=== PATIENT | female | born 1965 | race Caucasian/White ===

== ENCOUNTER → 2021-07-02 09:33 | Outpatient (POV) | payer OTHER, SELFPAY ==
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
[2021-07-02 10:02] VITALS: BP 177/77; PULSE 90; RESP 18; O2SAT 99; BMI 24.7
== END ==
PROVIDERS: Visit Provider Clinical Nurse Specialist Family Health
DX: M47.892 Other spondylosis, cervical region (principal); M54.12 Radiculopathy, cervical region; M54.50 Low back pain, unspecified
CPT/HCPCS: 99202; G0463

== ENCOUNTER 2021-07-17 17:00 | Outpatient (RCR) | payer OTHER, SELFPAY ==
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
== END 2021-08-29 16:15 | disposition home or self-care (01) ==
LOC: PT.CARL 17:00
PROVIDERS: Visit Provider Clinical Nurse Specialist Family Health
DX: M54.2 Cervicalgia (principal); M54.50 Low back pain, unspecified
CPT/HCPCS: 97010; 97012; 97014; 97110; 97140; 97163; G0283

== ENCOUNTER 2021-07-19 13:19 | Day surgery (SDC) | payer OTHER, SELFPAY ==
[2021-07-19 13:28] VITALS: BP 148/64; PULSE 81; RESP 18; TEMP 36.7; O2SAT 99; BMI 24.7
--- NOTE | 2021-07-19 13:39 | HMH.PMPROC ---
- Procedure Date: 07/19/21 Time: 13:39 Anesthesiologist:: Silvio Boyd MD Complications:: None Pre-procedure Diagnosis:: Degenerative disc disease of cervical spine with cervical radiculopathy symptoms Post-procedure Diagnosis:: Same Indications for Procedure:: Patient is a pleasant 56-year-old white female who we are treating for neck pain with cervical radicular symptoms. She has increasing pain in her neck radiating to both shoulders. We will plan on cervical epidural steroid injection under fluoroscopy today. Procedure Details:: Cervical epidural steroid injection under fluoroscopy Informed consent was obtained and the risks and benefits of the procedure was explained to the patient. The patient was taken to the procedure room placed prone on the procedure table. The neck was prepped using ChloraPrep. The skin and subcutaneous tissues were anesthetized using lidocaine. I placed a 18-gauge epidural needle into the C5-C6 interspace and advanced using [id number] to air and fluoroscopic guidance. After confirmation of needle placement in the epidural space with dye, I injected 3 mL's lidocaine 1.5% and Depo-Medrol 80 mg. The patient tolerated the procedure well with no complications. Plan and Disposition:: We will follow-up with her in 2 weeks. Will reevaluate symptoms at that time.
[2021-07-19 13:49] VITALS: BP 163/70; PULSE 83; RESP 18; O2SAT 100
[2021-07-19 13:50] VITALS: PULSE 89; RESP 18; O2SAT 100
[2021-07-19 14:03] VITALS: BP 140/69; PULSE 81; RESP 20; O2SAT 99
== END 2021-07-19 14:04 | disposition home or self-care (01) ==
LOC: SC.PAINP 13:21
PROVIDERS: PCP Internal Medicine; Visit Provider Anesthesiology
DX: M50.10 Cervical disc disorder with radiculopathy, unspecified cervical region (principal)
CPT/HCPCS: 62321; Q9966

== ENCOUNTER → 2021-08-12 08:54 | Outpatient (POV) | payer OTHER, SELFPAY ==
[2021-08-12 09:11] VITALS: BP 154/83; PULSE 102; RESP 18; O2SAT 97; BMI 22.3
--- NOTE | 2021-08-12 09:24 | HMH.PAINSOAP ---
[facility] Pain Management SOAP Note Subjective:: Patient is a 56-year-old white female who presents today for follow-up after cervical epidural steroid injection at C5-C6. This was the patient's #1 injection. The patient says that she got up to 80% relief. She does rate her pain a 4 out of 10 at this time. She says that she is not having pain down her left arm any longer. She does, however, still have burning sensation with sharp pain into her neck area. She says the pain does worsen while at work. In the a.m., her pain is much better. As the day progresses she says the pain does return. She is currently on meloxicam prescribed by Dr. Alvarez. She is scheduled for nerve conduction study at [facility] tomorrow. Patient will return to work in a few days and is concerned her pain will worsen. She would like to proceed with a repeat cervical epidural steroid injection at the same area. Review of Systems General: No recent weight changes, no fever, no sleep disturbances Respiratory: No cough, no shortness of air, no recurring pulmonary infections Cardiovascular/peripheral vascular: No chest pain, no palpitations, no edema, no shortness of breath Gastrointestinal: No new onset incontinence, normal bowel movements reported Genitourinary: No new onset incontinence Musculoskeletal: Neck pain with intermittent radiation into left arm Psychiatric: [Normal mood/affect] Neurological: [Denies weakness in extremities], [denies balance issues] Objective:: Physical exam General: Alert and oriented x3, no acute distress, pleasant and cooperative Lungs: Respirations even and unlabored, symmetrical chest expansion Eyes: PERRL Musculoskeletal: Flexion and extension of cervical [spine] somewhat guarded secondary to pain, Neurological: Speech clear, no gross sensory deficit Assessment:: Degenerative disc disease cervical spine with cervical radiculopathy symptoms Plan:: The patient reports to have gotten 80% relief with her #1 cervical epidural steroid injection at C5-C6 area. She would like to repeat the injection. She is continuing to have a burning sensation and sharp pain in her neck area while working. We will schedule the patient for a repeat injection and plan to see her back afterwards for further evaluation. This will be the patient's second injection. She is not on any anticoagulation therapy and is not diabetic. ORT is low risk. Patient did sign a pain management agreement today. Possible side effects of corticosteroids have been discussed with the patient. Risks and benefits of the procedure have been explained to the patient. Patient would like to proceed with the procedure. Patient has been instructed to contact the clinic with any concerns before the next appointment. Dr. Boyd has reviewed this note and agrees with this plan of care. This note was dictated using voice recognition software and make contain errors or omissions. [facility] History I have reviewed the patient's past medical history: Yes Medical History: Denies:: Cancer, Diabetes Mellitus Type 1, Diabetes Mellitus Type 2, MRSA, Seizures *Have you ever received a pneumonia vaccine?: No *Have you received a flu vaccine this season?: No Other Medical History: Denies: Blood Transfusion Reaction Laterality Cases: Right: Arthroscopy Knee, Bilateral: Tonsillectomy Other Surgeries: Yes: Amputation: No Fractures: No - *Social History Smoking Status: Never smoker Alcohol Intake: never *Occupational Status:: employed *Travel in the last 8 weeks: None Family Hx:: Non-contributory
== END ==
PROVIDERS: Visit Provider Clinical Nurse Specialist Family Health
DX: M50.10 Cervical disc disorder with radiculopathy, unspecified cervical region (principal)
CPT/HCPCS: 99212; G0463

== ENCOUNTER 2021-09-06 13:56 | Day surgery (SDC) | payer OTHER, SELFPAY ==
[2021-09-06 14:06] VITALS: BP 181/66; PULSE 86; RESP 20; TEMP 36.7; O2SAT 100; BMI 24.7
[2021-09-06 14:39] VITALS: BP 177/74; PULSE 87; RESP 18; O2SAT 99
[2021-09-06 14:41] VITALS: PULSE 89; RESP 18; O2SAT 100
--- NOTE | 2021-09-06 14:43 | HMH.PMPROC ---
- Procedure Date: 09/06/21 Time: 14:43 Anesthesiologist:: Silvio Boyd MD Complications:: None Pre-procedure Diagnosis:: Degenerative disc disease of the cervical spine with cervical radiculopathy symptoms Post-procedure Diagnosis:: Same Indications for Procedure:: This patient is a pleasant 56-year-old white female who we are treating for neck pain with cervical radicular symptoms. She did very well after last cervical epidural steroid injection. She was 80% better. Her pain is starting to return now. She presents for repeat cervical epidural steroid injection under fluoroscopy today. Procedure Details:: Cervical epidural steroid injection under fluoroscopy Informed consent was obtained and the risks and benefits of the procedure was explained to the patient. The patient was taken to the procedure room placed prone on the procedure table. The neck was prepped using ChloraPrep. The skin and subcutaneous tissues were anesthetized using lidocaine. I placed a 18-gauge epidural needle into the C5-C6 interspace and advanced using [id number] to air and fluoroscopic guidance. After confirmation of needle placement in the epidural space with dye, I injected 3 mL's lidocaine 1.5% and Depo-Medrol 80 mg. The patient tolerated the procedure well with no complications. Plan and Disposition:: We will follow-up with her in 2 weeks. Will reevaluate symptoms at that time.
[2021-09-06 14:51] VITALS: BP 152/78; PULSE 71; RESP 20; O2SAT 99
== END 2021-09-06 14:52 | disposition home or self-care (01) ==
LOC: SC.PAINP 13:56
PROVIDERS: PCP Internal Medicine; Visit Provider Anesthesiology
DX: M50.10 Cervical disc disorder with radiculopathy, unspecified cervical region (principal)
CPT/HCPCS: 62321; Q9966

== ENCOUNTER → 2021-09-10 11:42 | Outpatient (POV) | payer OTHER, SELFPAY ==
--- NOTE | 2021-09-10 19:58 | HMH.VVPMSO ---
[facility] Virtual Visit SOAP Consent for virtual visit:: With the recent concerns about the COVID-19, we are trying to minimize exposure to you by shifting to telehealth appointments whenever possible. It restricts me from seeing you in person, but the trade off is protecting you during this pandemic. Can you see and hear me okay, and do you consent to this option? If not, I would be happy to see if we can reschedule your appointment in the future, when feasible. Has patient consented to this virtual visit?: Yes Subjective:: Patient is a pleasant 56-year-old white female who contacted the clinic today regarding worsening pain. The patient did undergo a cervical epidural steroid injection on 09/06/2021. She is calling today with concerns of something may have been left in her neck . She says that the pain she is having is unlike any type of pain she is had in the past. The pain is excruciating in nature. We we will send the patient for an x-ray today. We did discuss possible corticosteroids, however she would like to defer on this at this time. She has been taken meloxicam. She is inquiring about different medication to take until she can be seen in the clinic. Review of Systems General: No recent weight changes, no fever, no sleep disturbances Respiratory: No cough, no shortness of air, no recurring pulmonary infections Cardiovascular/peripheral vascular: No chest pain, no palpitations, no edema, no shortness of breath Gastrointestinal: No new onset incontinence, normal bowel movements reported Genitourinary: No new onset incontinence Musculoskeletal: Severe neck pain after injection and cervical spine Psychiatric: [Normal mood/affect] Neurological: [Denies weakness in extremities], [denies balance issues] Objective:: Physical exam General: Alert and oriented x3, no acute distress, pleasant Assessment:: Degenerative disc disease cervical spine cervical radiculopathy symptoms Plan:: We will send the patient for x-rays to rule out any abnormal findings after her cervical epidural steroid injection. Patient will be contacted after x-ray to discuss a further plan of care. Patient was contacted this evening regarding her x-ray. The x-ray was unremarkable. We will change the patient's meloxicam to Celebrex 200 mg 1 tablet p.o. daily. We will give her 1 month dose of tramadol 50 mg 1 tablet p.o. twice daily. We will follow up with the patient in 1 week in the clinic for further evaluation. Risks and benefits of the medication have been explained in detail to the patient. The patient does understand the risk of dependence on the medication when given over a prolonged period. Patient has been advised of risks of oversedation with the prescribed medication. Narcan has been offered to the paitent in the event of oversedation. Patient has been advised that a family member should also be educated regarding administration of Narcan. The patient has been advised to consult with his/her primary care provider and pharmacist regarding drug-drug interaction of medications currently prescribed. Patient has been prescribed a controlled substance after being counseled on the medication, medication safety, and possible side effects. JONATAN report has been obtained and reviewed prior to prescription and found to be appropriate. Opioid contract was reviewed and signed by the patient, and that they have agreed to all of the terms set forth by our compliance program. Patient has been instructed to contact the clinic with any concerns before the next appointment. Dr. Boyd has reviewed this note and agrees with this plan of care. This note was dictated using voice recognition software and make contain errors or omissions. Time In:: 10:30 Time Out:: 10:45 [facility] History I have reviewed the patient's past medical history: Yes Medical History: Denies:: Cancer, Diabetes Mellitus Type 1, Diabetes Mellitus Type 2, MRSA, Seizures *H
== END ==
PROVIDERS: Visit Provider Clinical Nurse Specialist Family Health
DX: M50.10 Cervical disc disorder with radiculopathy, unspecified cervical region (principal)
CPT/HCPCS: 99212; G0463

== ENCOUNTER → 2021-09-10 12:52 | Outpatient (CLI) | payer OTHER, SELFPAY ==
--- NOTE | 2021-09-10 12:57 | XR_ITS ---
FINAL REPORT CLINICAL HISTORY: NECK PAIN, recent pain injection in neck on [place], patient feels like something foreign was left behind in her neck. pain and pinching like a needle FINDINGS: CERVICAL SPINE SERIES Six views demonstrate no fracture or subluxation. Mild and moderate degenerative changes with osteophytes are present. There is no definite foreign body. IMPRESSION: Degenerative changes. No definite foreign body. Reviewed, Interpreted and Dictated by Silvestre Red III, MD Transcribed by Diann Nicolas Authenticated by Silvestre Red III, MD on 09/10/2021 02:32:25 PM [facility]
--- NOTE | 2021-09-15 11:31 | P.CONS_ITS ---
[facility] Virtual Visit SOAP Consent for virtual visit:: With the recent concerns about the COVID-19, we are trying to minimize exposure to you by shifting to telehealth appointments whenever possible. It restricts me from seeing you in person, but the trade off is protecting you during this pandemic. Can you see and hear me okay, and do you consent to this option? If not, I would be happy to see if we can reschedule your appointment in the future, when feasible. Has patient consented to this virtual visit?: Yes Subjective:: Patient is a 56-year-old white female who is following up today via telehealth medicine. Patient did have a cervical epidural steroid injection on 09/06/[address] Boyd. Patient did contact the clinic this a.m. and reported to have a foreign object left following the injection . She is very concerned that something may have been left in her body following the injection. Patient says that she feels as though there is something in her neck causing her to have worsening pain. Patient has been advised to go to radiology and we will obtain a cervical x-ray today. Review of Systems General: No recent weight changes, no fever, no sleep disturbances Respiratory: No cough, no shortness of air, no recurring pulmonary infections Cardiovascular/peripheral vascular: No chest pain, no palpitations, no edema, no shortness of breath Gastrointestinal: No new onset incontinence, normal bowel movements reported Genitourinary: No new onset incontinence Musculoskeletal: Worsening neck pain since injection on 09/06/2021 Psychiatric: [Normal mood/affect] Neurological: [Denies weakness in extremities], [denies balance issues] Objective:: Physical exam General: Alert and oriented x3 Assessment:: Degenerative disc disease cervical spine with cervical radiculopathy symptoms Plan:: We did obtain a cervical x-ray. Patient was negative any foreign body per x- ray. Patient was called and reassured that her worsening pain is likely due to an inflammatory response following the injection. We will follow up with the patient in 1 week in the clinic. If the pain does worsen she has been advised to go to the emergency room. She is in agreement. Patient has been instructed to contact the clinic with any concerns before the next appointment. Dr. Boyd has reviewed this note and agrees with this plan of care. This note was dictated using voice recognition software and make contain errors or omissions. Time In:: 09:00 Time Out:: 09:10 [facility] History I have reviewed the patient's past medical history: Yes Medical History: Denies:: Cancer, Diabetes Mellitus Type 1, Diabetes Mellitus Type 2, MRSA, Seizures *Have you ever received a pneumonia vaccine?: No *Have you received a flu vaccine this season?: No Other Medical History: Reports: Arthritis. Denies: Blood Transfusion Reaction Laterality Cases: Right: Arthroscopy Knee, Bilateral: Tonsillectomy Other Surgeries: Yes: Amputation: No Fractures: No - *Social History Smoking Status: Never smoker Alcohol Intake: never *Occupational Status:: employed *Travel in the last 8 weeks: None Family Hx:: Other
== END ==
PROVIDERS: PCP Internal Medicine; Visit Provider Clinical Nurse Specialist Family Health
DX: M54.2 Cervicalgia (principal)
CPT/HCPCS: 72050

== ENCOUNTER → 2021-09-19 14:21 | Outpatient (POV) | payer OTHER, SELFPAY ==
[2021-09-19 14:55] VITALS: BP 157/89; PULSE 85; RESP 18; O2SAT 98; BMI 24.7
--- NOTE | 2021-09-23 15:49 | HMH.PAINSOAP ---
[facility] Pain Management SOAP Note Subjective:: Patient presents today for follow-up. Patient was seen in the clinic on 09/06/2021 and did undergo a cervical epidural steroid injection by Dr. Boyd. On 09/10/2021, the patient did contact the clinic and was concerned that a foreign object was left inside her body. Telehealth visit was performed and the patient was sent for x-rays. The x-rays were unremarkable. She is here today to discuss her options. She has not had any significant relief with injective therapy. She has had physical therapy for more than 6 weeks which did give her relief initially, but pain did return. She has been on meloxicam for more than a year. She continues with home stretching. Patient has seen Dr. Alvarez in the past who did not feel she was a surgical candidate. She feels that her pain is progressively worsening and changing in nature. She has difficulty raising her arms above her head without having significant pain with numbness and tingling as well as pain in her neck. She does rate her pain a 7 out of 10 today. She has not had recent imaging. She would like to undergo imaging to determine if she does need to see neurosurgery. Review of Systems General: No recent weight changes, no fever, no sleep disturbances Respiratory: No cough, no shortness of air, no recurring pulmonary infections Cardiovascular/peripheral vascular: No chest pain, no palpitations, no edema, no shortness of breath Gastrointestinal: No new onset incontinence, normal bowel movements reported Genitourinary: No new onset incontinence Musculoskeletal: Neck pain with radiation into upper extremities Psychiatric: [Normal mood/affect] Neurological: [Denies weakness in extremities], [denies balance issues] Objective:: Physical exam General: Alert and oriented x3, no acute distress, pleasant and cooperative Lungs: Respirations even and unlabored, symmetrical chest expansion Eyes: PERRL Musculoskeletal: Flexion and extension of cervical [spine] somewhat guarded secondary to pain, [normal gait noted Neurological: Speech clear, no gross sensory deficit Assessment:: Degenerative disc disease cervical spine with cervical radiculopathy symptoms Plan:: The patient is not interested in intrathecal therapy or spinal cord stimulation at this time. She would like referral to neurosurgery but will require updated imaging. She has seen Dr. Alvarez in the past who did not feel she was a surgical candidate. She would like a second opinion. We will obtain an MRI cervical spine and see her back afterwards to discuss the imaging results and referral to n neurosurgery per patient request. Patient has been instructed to contact the clinic with any concerns before the next appointment. Dr. Boyd has reviewed this note and agrees with this plan of care. This note was dictated using voice recognition software and make contain errors or omissions. [facility] History I have reviewed the patient's past medical history: Yes Medical History: Denies:: Cancer, Diabetes Mellitus Type 1, Diabetes Mellitus Type 2, MRSA, Seizures *Have you ever received a pneumonia vaccine?: No *Have you received a flu vaccine this season?: No Other Medical History: Reports: Arthritis. Denies: Blood Transfusion Reaction Laterality Cases: Right: Arthroscopy Knee, Bilateral: Tonsillectomy Other Surgeries: Yes: Amputation: No Fractures: No - *Social History Smoking Status: Never smoker Alcohol Intake: never *Occupational Status:: unemployed *Travel in the last 8 weeks: None Family Hx:: Other
== END ==
PROVIDERS: Visit Provider Clinical Nurse Specialist Family Health
DX: M50.10 Cervical disc disorder with radiculopathy, unspecified cervical region (principal)
CPT/HCPCS: 99212; G0463

== ENCOUNTER → 2021-09-24 10:54 | Outpatient (CLI) | payer OTHER, SELFPAY ==
--- NOTE | 2021-09-24 10:59 | MR_ITS ---
FINAL REPORT CLINICAL HISTORY: NECK PAIN. LT SIDED NECK PAIN. DDD. INTERMITTENT LT ARM NUMBNESS AND TINGLING [id number]. SYMPTOMS XYRS. HEADACHE. PRIOR X-RAY 09-10-21 FINDINGS: Multiplanar MR imaging of the cervical spine was performed without contrast. On the sagittal T2-weighted images, disc degeneration is seen throughout. There is no evidence of fracture. The vertebral alignment is normal. The cervical spinal cord has an unremarkable appearance without evidence of mass, edema or syrinx. No significant canal stenosis is identified. The cervicomedullary junction is normal. C2-3: There is no significant canal stenosis or neural foraminal narrowing. C3-4: There is no significant canal stenosis or neural foraminal narrowing. C4-5: There is a disc osteophyte complex. There is no significant canal stenosis or neural foraminal narrowing. C5-6: There is a disc osteophyte complex with mild left neural foraminal narrowing. C6-7: There is a disc osteophyte complex. There is mild right and moderate left neural foraminal narrowing. C7-T1: An annular bulge is present. There is no significant canal stenosis or neural foraminal narrowing. IMPRESSION: Multilevel degenerative disc disease and spondylosis as described. Reviewed, Interpreted and Dictated by Silvestre Red III, MD Transcribed by Itz Amaro Authenticated by Silvestre Red III, MD on 09/24/2021 01:16:17 PM [facility]
== END ==
PROVIDERS: PCP Internal Medicine; Visit Provider Clinical Nurse Specialist Family Health
DX: M54.2 Cervicalgia (principal)
CPT/HCPCS: 72141; 76376

== ENCOUNTER → 2021-10-03 14:23 | Outpatient (POV) | payer OTHER, SELFPAY ==
[2021-10-03 14:35] VITALS: BP 172/87; PULSE 80; RESP 18; O2SAT 99; BMI 24.7
--- NOTE | 2021-10-03 14:48 | P.CONS_ITS ---
[facility] Pain Management SOAP Note Subjective:: Patient is a very pleasant 56-year-old white female who presents today for follow-up after undergoing a cervical epidural steroid injection. She is currently being managed for degenerative disease of the cervical spine with cervical radiculopathy. She recently underwent a cervical epidural steroid i njection to on September 06, [address] ALETHEA Douglas. She states that she experienced resolution of her left arm pain symptoms and some improvement of her neck pain after undergoing the first cervical epidural steroid injection. However, she states that the second cervical epidural steroid injection did not provide her much relief in her neck pain. She states that she did not any left arm pain symptoms prior to undergoing the second cervical epidural steroid injection. She also states that she had significant pain after undergoing the second cervical epidural steroid injection to the point where she believes that there may have been a foreign object left in her neck after undergoing the procedure She states that at this time most of her pain is in her neck without any radiation into her arms. She says the pain is worse with rotation of her neck from side to side as well as up and down. 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 She is questioning whether her chronic pain symptoms are related to a workplace injury. She is currently taking meloxicam 1 tablet daily as needed for pain. She rates her pain today as a 10 out of 10. Objective:: General: Alert and oriented x3, no acute distress, pleasant and cooperative Lungs: Resps E/U, symmetric chest expansion Eyes: PERRL Musculoskeletal: limited flexion and extension of the cervical spine secondary to pain. Deep tendon reflexes were normal in bilateral upper and lower extremities. Motor exam was grossly intact in the bilateral upper and lower extremities. There is to palpation over the lower cervical facet joints. 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 However, the patient states that she would like to defer injection therapy at this time as she states that she had significant pain after the second cervical epidural steroid injection. She would like to continue taking the meloxicam 1 tablet daily as needed for pain. [facility] #[id number] was reviewed and appropriate. We will follow-up with this patient in 1 month for reassessment of her chronic pain symptoms. [facility] History Medical History: Denies:: Cancer, Diabetes Mellitus Type 1, Diabetes Mellitus Type 2, MRSA, Seizures *Have you ever received a pneumonia vaccine?: No *Have you received a flu vaccine this season?: No Other Medical History: Reports: Arthritis. Denies: Blood Transfusion Reaction Laterality Cases: Right: Arthroscopy Knee, Bilateral: Tonsillectomy Other Surgeries: Yes: Amputation: No Fractures: No - *Social History Smoking Status: Never smoker Alcohol Intake: never *Occupational Status:: unemployed *Travel in the last 8 weeks: None Family Hx:: Other
== END ==
PROVIDERS: Visit Provider Anesthesiology Pain Medicine
DX: M50.10 Cervical disc disorder with radiculopathy, unspecified cervical region (principal); M54.02 Panniculitis affecting regions of neck and back, cervical region; M47.892 Other spondylosis, cervical region
CPT/HCPCS: 99212; G0463

== ENCOUNTER 2023-11-21 15:05 | Emergency (ER) | payer OTHER, SELFPAY ==
[2023-11-21 15:20] VITALS: BP 169/83; PULSE 109; RESP 20; TEMP 36.5; O2SAT 98; BMI 22.6
--- NOTE | 2023-11-21 15:34 | PC.NURSE ---
in room talking with patient at this time.
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
[2023-11-21] MEDS: ONDANSETRON 4MG/2ML VIAL 4 MG IV (15:59)
[2023-11-21] MEDS: MORPHINE 4MG/ML SYRINGE 4 MG IV ×2 (15:59→18:02)
[2023-11-21] MEDS: ACETAMINOPHEN 1,000MG/100ML VIAL 1000 MG IV (16:00)
[2023-11-21 16:06] VITALS: BP 152/72; PULSE 92; O2SAT 100
[2023-11-21 16:10] LABS: Chloride 109 mmol/L (98-107); Potassium 3.5 mmoL/L (3.5-5.1); Sodium 141 mmol/L (136-145)
[2023-11-21 16:12] LABS: Blood Urea Nitrogen 13 mg/dl (7-17); Creatinine Clearance Estimated 70 mL/min (50-200); Estimated Glomerular Filt Rate 74 ml/min (>60); GFR (African American) 89 ML/MIN (>60)
[2023-11-21 16:13] LABS: Alanine Aminotransferase 31 U/L (12-78); Albumin Level 4.6 g/dl (3.5-5.0); Albumin/Globulin Ratio 1.6 (1.1-1.8); Alkaline Phosphatase 99 U/L (38-126); Anion Gap 7.5 mEq/L (5-15); Aspartate Amino Transferase 48 U/L (14-36); Bilirubin,Total 0.6 mg/dl (0.2-1.3); Carbon Dioxide 28 mmol/L (22.0-30.0); Globulin 2.9 g/dL (1.3-3.2); Glucose 104 mg/dl (74-100); Total Protein,Serum 7.5 g/dl (6.3-8.2)
[2023-11-21 16:20] LABS: Basophils # 0.1 K/mm3 (0-0.2); Basophils % 0.7 % (0.1-2.0); Eosinophils # 0.1 K/mm3 (0.0-0.4); Eosinophils % 0.3 % (0.1-12.0); Hematocrit 41.5 % (37.0-47.0); Hemoglobin 13.6 g/dL (12.2-16.2); Lymphocytes # 1.5 K/mm3 (0.7-4.5); Lymphocytes % 10.7 % (10-50); Mean Corpuscular HGB Conc 32.8 g/dL (31.8-35.4); Mean Corpuscular Hemoglobin 30.8 pg (27.0-31.2); Mean Platelet Volume 8.2 fl (7.4-10.4); Monocytes # 0.5 K/mm3 (0.1-1.0); Monocytes % 3.4 % (1.7-9.3); Neutrophils # 11.8 K/mm3 (1.8-7.8); Neutrophils % 84.9 % (37.0-80.0); Platelet Count 346 K/mm3 (142-424); Red Blood Count 4.41 M/mm3 (4.20-5.40); Red Cell Distribution Width 13.7 % (11.5-17.5); White Blood Count 13.9 K/mm3 (4.8-10.8)
[2023-11-21 16:43] LABS: Microscopic, Urine URINE MICROSCOPIC (MICROSCOPIC)
[2023-11-21 16:46] LABS: Appearance,Urine CLEAR (Clear); Bilirubin,Urine Negative (Negative); Blood, Urine Negative (Negative); Color,Urine Straw (Yellow); Glucose,Urine (UA) Negative (Negative); Ketones,Urine Negative (Negative); Leukocyte Esterase,Urine Negative (Negative); Nitrate,Urine Negative (Negative); PH,Urine 6.5 (5.0-8.5); Protein,Urine Negative (Negative); Specific Gravity, Urine <= 1.005 (1.005-1.030); Urobilinogen,Urine 0.2 EU/dl (0.2)
[2023-11-21 17:06] LABS: WBC,Urine Occasional #/hpf (0-3)
--- NOTE | 2023-11-21 17:45 | PC.NURSE ---
pt is resting in bed. spouse @ bedside.
--- NOTE | 2023-11-21 18:04 | PC.NURSE ---
Pt to CT at this time
[2023-11-21] MEDS: IOPAMIDOL-370 (76%);100ML BOTTLE 75 ML IV (18:11)
[2023-11-21] MEDS: SODIUM CHLORIDE 0.9% 10ML SYR (RAD ONLY) 10 ML IV (18:11)
--- NOTE | 2023-11-21 18:30 | PC.NURSE ---
pt arrived back to room
[2023-11-21] MEDS: BACITRACIN-POLYMYXIN B OINT 30GM TUBE TP (19:38)
--- NOTE | 2023-11-21 19:39 | PC.NURSE ---
pt declined TDAP due to receiving it 4 yrs ago
[2023-11-21 19:48] VITALS: BP 139/81; PULSE 87; RESP 14; TEMP 36.5; O2SAT 99
--- NOTE | 2023-11-21 19:55 | PC.NURSE ---
Wounds to BUE cleaned with NS, and bacitracin applied to open wounds. Covered with nonadherent bandages and secured with tape. Education provided on use of crutches to patient with demonstration and VU on correct use. Left knee wrapped with saqib bandage also.
== END 2023-11-21 19:55 | disposition home or self-care (01) ==
PROVIDERS: Emergency Provider Emergency Medicine; PCP Internal Medicine
DX: S41.151A Open bite of right upper arm, initial encounter (principal); S41.152A Open bite of left upper arm, initial encounter; S51.851A Open bite of right forearm, initial encounter; S51.852A Open bite of left forearm, initial encounter; S89.92XA Unspecified injury of left lower leg, initial encounter; S39.93XA Unspecified injury of pelvis, initial encounter; S79.812A Other specified injuries of left hip, initial encounter; W55.31XA Bitten by other hoof stock, initial encounter; W55.32XA Struck by other hoof stock, initial encounter; W55.39XA Other contact with other hoof stock, initial encounter; Z23 Encounter for immunization
CPT/HCPCS: 73060; 73080; 73090; 73502; 73552; 73562; 73590; 74177; 80053; 81001; 85025; 90471; 96374; 96375; 96376; 99285; J0131; J2405; Q9967

== ENCOUNTER 2024-03-03 09:03 | Outpatient (CLI) | payer OTHER, SELFPAY ==
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
== END 2024-03-03 23:59 | disposition home or self-care (01) ==
LOC: RAD 09:04
PROVIDERS: PCP Internal Medicine; Visit Provider Physician Assistant
DX: M79.621 Pain in right upper arm (principal)
CPT/HCPCS: 73060

== ENCOUNTER 2024-03-17 16:26 | Outpatient (CLI) | payer OTHER, SELFPAY ==
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
== END 2024-03-17 23:59 | disposition home or self-care (01) ==
LOC: RAD 16:27
PROVIDERS: PCP Internal Medicine; Visit Provider Physician Assistant
DX: R22.31 Localized swelling, mass and lump, right upper limb (principal)
CPT/HCPCS: 73218